=== PATIENT | male | born 1980 | race Caucasian/White ===

== ENCOUNTER 2016-06-12 16:04 | Emergency (ER) | payer OTHER | END 2016-06-12 17:33 | disposition home or self-care (01) | LOC: ED 16:04 | DX: J02.8 Acute pharyngitis due to other specified organisms (principal) ==

== ENCOUNTER 2016-07-03 16:44 | Emergency (ER) | payer OTHER ==
--- NOTE | 2016-07-03 18:39 | RAD ---
07/03/2016 6:35 PM CHEST - 2 VIEWS History: Cough for 3 weeks Comparison: None Findings: Two views of the chest are obtained. The lungs are clear with out effusion or pneumothorax. The cardiomediastinal silhouette is unremarkable.. The osseous structures are intact.. IMPRESSION: No acute intrathoracic process.
--- NOTE | 2016-07-03 18:40 | RAD ---
HISTORY: Lumbar strain after bending over. COMPARISON: None Findings: AP and lateral views of the lumbar spine with AP spot film of the lumbo-sacral junction are obtained. The development and bony structures are normal. There is no fracture, dislocation or destructive lesion. There is slight retrolisthesis of L5 on S1. Mild facet disease is noted at the lumbosacral junction. Incomplete fusion of the posterior elements of S1. The disk spaces and vertebral body heights are well-preserved. The sacrum and sacroiliac joints are normal. IMPRESSION: Mild degenerative change without fracture or dislocation.
== END 2016-07-03 19:03 | disposition home or self-care (01) ==
LOC: ED 16:44
DX: J06.9 Acute upper respiratory infection, unspecified (principal); R05 Cough; M54.5 Low back pain; R53.81 Other malaise; Z85.47 Personal history of malignant neoplasm of testis